=== PATIENT | female | born 1995 | race Caucasian/White ===

== ENCOUNTER 2016-07-15 18:55 | Emergency (ER) | payer SELFPAY ==
[2016-07-15 20:40] VITALS: BP 130/70
[2016-07-15] MEDS ORDERED: Ibuprofen TAB* 600 MG PO ONE (21:47)
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
== END 2016-07-15 22:10 | disposition home or self-care (01) ==
LOC: UCEAST 18:55
DX: S46.911A Strain of unspecified muscle, fascia and tendon at shoulder and upper arm level, right arm, initial encounter (principal); V49.9XXA Car occupant (driver) (passenger) injured in unspecified traffic accident, initial encounter; Y93.89 Activity, other specified; Y92.9 Unspecified place or not applicable; Z88.1 Allergy status to other antibiotic agents; G80.9 Cerebral palsy, unspecified
CPT/HCPCS: 99211; A9270-GY; G0463

== ENCOUNTER 2017-07-17 16:45 | Emergency (ER) | payer OTHER ==
[2017-07-17 17:02] VITALS: BP 134/83
--- NOTE | 2017-07-17 17:11 | UC ---
Throat Pain/Nasal Mike HPI - HPI Summary HPI Summary: Pt presents with sinus pain/pressure/congestion for the last 3 days. She tells me that she gets sinus infections often and they always "hit like a brick". She has not taken anything OTC. Denies fever, chills, cough, sore throat, SOB, chest pain. - History of Current Complaint Chief Complaint: UCRespiratory Stated Complaint: SINUS COMPLAINT Time Seen by Provider: 07/17/17 17:10 Hx Obtained From: Patient Hx Last Menstrual Period: now Onset/Duration: Sudden Onset Severity: Moderate Pain Intensity: 7 Pain Scale Used: 0-10 Numeric - Allergies/Home Medications Allergies/Adverse Reactions: Allergies Allergy/AdvReac Type Severity Reaction Status Date / Time cefaclor Allergy Difficulty Verified 07/17/17 17:03 Breathing cefprozil [From Cefzil] Allergy Difficulty Verified 07/17/17 17:03 Breathing Home Medications: Home Medications Multivitamin [One Daily] 1 tab PO DAILY 07/17/17 [History Confirmed 07/17/17] PMH/Surg Hx/FS Hx/Imm Hx Previously Healthy: Yes - Surgical History Surgical History: Yes Surgery Procedure, Year, and Place: Botox /6 mos for legs. 2011 osteotomities bilateral - Family History Known Family History: Positive: Unknown - Social History Occupation: Disabled Lives: With Family Alcohol Use: Rare Substance Use Type: None Smoking Status (MU): Never Smoked Tobacco - Immunization History Most Recent Influenza Vaccination: denies Review of Systems Constitutional: Negative Skin: Negative Eyes: Negative ENT: Nasal Discharge, Sinus Congestion, Sinus Pain/Tenderness Respiratory: Negative Cardiovascular: Negative Gastrointestinal: Negative Neurovascular: Negative Musculoskeletal: Negative Neurological: Negative Psychological: Negative All Other Systems Reviewed And Are Negative: Yes Physical Exam - Summary Physical Exam Summary: GENERAL: NAD. WDWN. No pain distress. SKIN: No rashes, sores, ulcers, masses, lesions. HEENT: Head: AT/NC Eyes: EOM intact. Conjunctiva clear without inflammation or discharge. Ears: Hearing grossly normal. TMs intact, no bulging, erythema, or edema. Nose: Nasal mucosa pink and moist. TTP maxillary and frontal sinus. Throat: Posterior oropharynx without exudates, erythema, or tonsillar enlargement. Uvula midline. NECK: Supple. Nontender. No lymphadenopathy. CHEST: CTAB. No r/r/w. No accessory muscle use. Breathing comfortably and in no distress. CV: RRR. Without m/r/g. Pulses intact. Brisk cap refill. NEURO: Alert. CN II-XII grossly intact. PSYCH: Age appropriate behavior. Triage Information Reviewed: Yes Vital Signs: Initial Vital Signs Temp 98.6 F 07/17/17 17:00 Pulse 116 07/17/17 17:00 Resp 12 07/17/17 17:00 BP 134/83 07/17/17 17:00 Pulse Ox 100 07/17/17 17:00 Throat Pain/Nasal Course/Dx - Course Course Of Treatment: Sinusitis. Discussed at length with pt that her symptoms are likely viral and will improve in 7-10 days. She is adamantly requesting antibiotic therapy with zpak. - Differential Dx/Diagnosis Provider Diagnoses: Sinusitis Discharge - Sign-Out/Discharge Documenting (check all that apply): Discharge - Discharge Plan Condition: Stable Disposition: HOME Prescriptions: Azithromycin TAB* [Zithromax TAB (Z-PHANI) 250 mg #6 tabs] 2 tab PO .TODAY, THEN 1 DAILY #1 phani Patient Education Materials: Sinusitis (ED) Forms: *Work Release Referrals: Viridiana Anderson MD [Primary Care Provider] - Additional Instructions: If you develop a fever, shortness of breath, chest pain, new or worsening symptoms - please call your PCP or go to the ED. Your blood pressure was high at todays visit. Please see your primary provider within 4 weeks for recheck and re-evaluation. - Billing Disposition and Condition Condition: STABLE Disposition: HOME
== END 2017-07-17 17:28 | disposition home or self-care (01) ==
LOC: UCEAST 16:45
DX: J32.9 Chronic sinusitis, unspecified (principal); Z88.1 Allergy status to other antibiotic agents
CPT/HCPCS: 99212; G0463

== ENCOUNTER 2018-02-03 11:00 | Emergency (ER) | payer BC, OTHER ==
[2018-02-03 11:09] VITALS: BP 147/82
--- NOTE | 2018-02-03 11:20 | UC ---
Throat Pain/Nasal Mike HPI - HPI Summary HPI Summary: Patient with sore throat and cough for 7 days.. Hypertension also noted - History of Current Complaint Chief Complaint: UCGeneralIllness Stated Complaint: SORE THROAT Time Seen by Provider: 02/03/18 11:12 Hx Last Menstrual Period: 01/18/18 Pain Intensity: 6 - Allergies/Home Medications Allergies/Adverse Reactions: Allergies Allergy/AdvReac Type Severity Reaction Status Date / Time cefaclor Allergy Difficulty Verified 02/03/18 11:10 Breathing cefprozil [From Cefzil] Allergy Difficulty Verified 02/03/18 11:10 Breathing PMH/Surg Hx/FS Hx/Imm Hx - Additional Past Medical History Additional PMH: Hx. of hypertension in health care settings. Previously Healthy: Yes - Surgical History Surgical History: Yes Surgery Procedure, Year, and Place: Botox /6 mos for legs. 2011 osteotomities bilateral - Family History Known Family History: Positive: Unknown, Diabetes - noted by patient - Social History Occupation: Student Alcohol Use: Rare Substance Use Type: None Smoking Status (MU): Never Smoked Tobacco - Immunization History Most Recent Influenza Vaccination: denies Review of Systems Constitutional: Negative Skin: Negative Eyes: Negative ENT: Sore Throat Respiratory: Cough Cardiovascular: Negative Gastrointestinal: Negative Genitourinary: Negative Motor: Negative Neurovascular: Negative Musculoskeletal: Negative Neurological: Negative Psychological: Negative Is Patient Immunocompromised?: No All Other Systems Reviewed And Are Negative: Yes Physical Exam - Summary Physical Exam Summary: Appearance: The patient is well-appearing, is in no pain or distress, and is well-nourished. Eyes: Conjunctiva are clear. Pupils are equal and reactive to light and accommodation. Extra ocular muscle movement is intact. ENT: The hearing is grossly normal, the pharynx is normal, and the TMs are normal. There is no muffled or hoarse voice. No stridor. Neck: The neck is supple and there is no lymphadenopathy. Mild posterior pharynx erythema. No peritonsillar abscess or vocal change. Respiratory: The chest is nontender to palpation and without crepitus. The lungs are clear, there are normal breath sounds, and there is no respiratory distress. No wheezes, rales or rhonchi. Intermittent dry cough. Cardiovascular: Heart sounds reveal a regular rate and rhythm. There are no clicks, rubs or murmurs. There are no carotid bruits or thrills. Circulation is grossly intact. Abdomen: The abdomen is soft and nontender. There is no organomegaly. Bowel sounds are present and within normal limits. No point tenderness at McBurneys point. Musculoskeletal: Strength is intact. The patient moves all extremities. Neurological: The patient is alert. Motor and sensory are examination grossly intact. Speech is normal. Psychological: The patient displays age appropriate behavior. Skin: Negative for rashes. Triage Information Reviewed: Yes Vital Signs: Initial Vital Signs Temp 98 F 02/03/18 11:06 Pulse 121 02/03/18 11:06 Resp 20 02/03/18 11:06 BP 147/82 02/03/18 11:06 Pulse Ox 98 02/03/18 11:06 Vital Signs Reviewed: Yes Throat Pain/Nasal Course/Dx - Course Course Of Treatment: 22 year old with sore throat and cough. Negative rapid strep. My dx is viral pharyngitis. I have started her on viscous lidocaine and two days of dexamethasone. Patient voiced understanding. - Differential Dx/Diagnosis Provider Diagnoses: pharyngitis; strep negative Discharge - Sign-Out/Discharge Documenting (check all that apply): Patient Departure All imaging exams completed and their final reports reviewed: Yes - Discharge Plan Condition: Stable Disposition: HOME Prescriptions: Dexamethasone TAB* [Decadron TAB*] 4 mg PO DAILY #4 tab MDD 2 Lidocaine 2% VISCOUS* [Xylocaine 2% Viscous*] 15 ml SWISH SPIT Q4H #1 btl MDD 4 doses Patient Education Materials: Tonsillitis (ED) Referrals: Viridiana Anderson MD [Primary Care Provider] - Additional Instructions: WE DISCUSSED: you have PHARYNGITIS, probably caused by a virus. We will treat the symptoms with viscous lidocaine and dexamethasone. Warm, salt water gargles and tea and honey can help. Recheck at any time for any problems breathing or swallowing or if you develop chest pain, fever or shortness of breath. PLEASE SEEK CARE AT THE EMERGENCY DEPARTMENT IF SYMPTOMS WORSEN OR IF NEW SYMPTOMS DEVELOP. FOLLOW UP WITH YOUR PRIMARY CARE PHYSICIAN IF CONDITION CONTINUES BEYOND 3 DAYS WITHOUT IMPROVEMENT. HTN NOTED: Hypertensive BP reading noted follow up with PCP within 4 weeks to recheck blood pressure or check in non-medical facility where you won't be anxious. - Billing Disposition and Condition Condition: STABLE Disposition: Home
== END 2018-02-03 11:47 | disposition home or self-care (01) ==
LOC: UCEAST 11:00
DX: J02.9 Acute pharyngitis, unspecified (principal); I10 Essential (primary) hypertension; Z88.1 Allergy status to other antibiotic agents
CPT/HCPCS: 87651; 99212; G0463

== ENCOUNTER 2019-06-16 16:01 | Emergency (ER) | payer BC ==
[2019-06-16 16:14] VITALS: BP 147/87
--- NOTE | 2019-06-16 16:28 | UC ---
Throat Pain/Nasal Mike HPI - HPI Summary HPI Summary: C/O 2 day h/o maxillary and frontal sinus pain with fevers/ chills. - History of Current Complaint Chief Complaint: UCGeneralIllness Stated Complaint: SINUS COMPLAINT Hx Obtained From: Patient Hx Last Menstrual Period: 06/06/19 ?: No Onset/Duration: Sudden Onset, Lasting Days - 2, Still Present Severity: Moderate Pain Intensity: 7 Cough: None Associated Signs & Symptoms: Positive: Sinus Discomfort, Nasal Discharge Related History: Seasonal Allergies - Allergies/Home Medications Allergies/Adverse Reactions: Allergies Allergy/AdvReac Type Severity Reaction Status Date / Time cefaclor Allergy Difficulty Verified 06/16/19 16:14 Breathing cefprozil [From Cefzil] Allergy Difficulty Verified 06/16/19 16:14 Breathing Home Medications: Home Medications Multivitamin [One Daily] 1 tab PO DAILY 07/17/17 [History Confirmed 06/16/19] Amoxicillin PO (*) [Amoxicillin 875 MG (*)] 875 mg PO BID #20 tab 06/16/19 [Rx] Loratadine [Alavert] 10 mg PO DAILY 06/16/19 [History Confirmed 06/16/19] PMH/Surg Hx/FS Hx/Imm Hx Other Neurological History: Cerebral palsy - Surgical History Surgical History: Yes Surgery Procedure, Year, and Place: Botox /6 mos for legs. 2011 osteotomities bilateral - Family History Known Family History: Positive: Diabetes - noted by patient - Social History Occupation: Student Lives: Dormitory/Roommates Alcohol Use: Rare Substance Use Type: None Smoking Status (MU): Never Smoked Tobacco - Immunization History Most Recent Influenza Vaccination: denies Review of Systems All Other Systems Reviewed And Are Negative: Yes Constitutional: Positive: Fever, Chills ENT: Positive: Nasal Discharge, Sinus Congestion, Sinus Pain/Tenderness Physical Exam Triage Information Reviewed: Yes Appearance: No Pain Distress, Well-Nourished, Ill-Appearing - mild Vital Signs: Initial Vital Signs Temp 99.1 F 06/16/19 16:09 Pulse 142 06/16/19 16:09 Resp 18 06/16/19 16:09 BP 147/87 06/16/19 16:09 Pulse Ox 100 06/16/19 16:09 Eyes: Positive: Conjunctiva Clear ENT: Positive: Pharynx normal, Nasal congestion, Sinus tenderness - maxillary Respiratory Exam: Normal Cardiovascular Exam: Normal Musculoskeletal Exam: Normal Neurological Exam: Normal Psychological Exam: Normal Skin Exam: Normal Throat Pain/Nasal Course/Dx - Differential Dx/Diagnosis Differential Diagnosis/HQI/PQRI: Otitis Media, Sinusitis, Tonsillitis, URI Provider Diagnosis: Allergic rhinitis, Acute bacterial sinusitis Discharge ED - Sign-Out/Discharge Documenting (check all that apply): Patient Departure All imaging exams completed and their final reports reviewed: No Studies - Discharge Plan Condition: Stable Disposition: HOME Prescriptions: Amoxicillin PO (*) [Amoxicillin 875 MG (*)] 875 mg PO BID #20 tab Patient Education Materials: Sinusitis (ED), Allergies (ED) Referrals: Viridiana Anderson MD [Primary Care Provider] - Additional Instructions: NEILMED SINUS RINSE: CHECK OUT AT [employer] Saline nasal wash helps with mucous, allergies and congestion. It can be used up to twice a day or only as needed. Use lukewarm tap water. It does not have to be sterilized or distilled water. Tilt your head straight down into the sink. Do 1/3 on each side and snort out of both nostrils. Repeat the process with 1/6 of the bottle on each side with snorting in between to finish the solution in the bottle - Billing Disposition and Condition Condition: STABLE Disposition: Home
== END 2019-06-16 16:39 | disposition home or self-care (01) ==
LOC: UCCORT 16:01
DX: J01.90 Acute sinusitis, unspecified (principal); J30.9 Allergic rhinitis, unspecified; G80.9 Cerebral palsy, unspecified; B96.89 Other specified bacterial agents as the cause of diseases classified elsewhere; Z88.1 Allergy status to other antibiotic agents
CPT/HCPCS: 99212; G0463